=== PATIENT | female | born 1950 | race Caucasian/White ===

== ENCOUNTER → 2016-08-13 | Outpatient (CLI) | payer OTHER ==
[~2016-08-13] MED LIST: ACETAMINOPHEN PO; AMLODIPINE BESYL5 MG PO; LEVOTHROID100 MC1 PO; LEVOTHYROXINE150 MCG PO; TOPROL XL100 MG PO
--- NOTE | ~2016-08-13 | MR113 ---
[facility] A Service of [facility] & [facility] / [facility] RADIOLOGY TEXT RESULTS PATIENT: ZACK MANCERA LOCATION: [facility] : 50 UNIT #: [id number] AGE: [address]: Phillip Warren MD SEX: F ORDER DR: [id number] [address] [address] [id number] O MR#: [id number] Acc #: [id number] NAME: ZACK MANCERA : 1950 SEX: F STUDY DATE/TIME: 08/13/2016 8:44 UNIT: [facility] ROOM: STUDY DESCRIPTION: MR Lumbar Wo Contrast Attending Physician: Phillip Warren M.D. Referring Physician: Phillip Warren M.D. Ordering Physician: Phillip Warren M.D. Primary Care Physician: Phillip Warren M.D. MRI CENTER REPORT This report is preliminary unless electronic signature is present. EXAM MRI of the lumbar spine without contrast INDICATION Sciatica. Low back pain with bilateral lower extremity radiculopathy for 2 months. TECHNIQUE Multiplanar MRI of the lumbar spine without contrast. COMPARISON Lumbar spine radiographs dated 08/07/2016. FINDINGS Vertebral body height and alignment is within normal limits. There is a 1.9 cm mass in the L2 vertebra which is most consistent with a hemangioma. Otherwise no abnormal bone marrow signal. Signal characteristics of the distal thoracic spinal cord and conus medullaris are within normal limits. The conus terminates at the L2 level. L1-2: L1-2 disc is within normal limits. There is mild facet arthropathy. No central canal or neural foraminal stenosis. L2-3: There is a small broad-based disc protrusion centrally. There is moderate facet arthropathy. No significant central canal stenosis, however there is mild bilateral neural foraminal stenosis. L3-4: There is a small broad-based disc protrusion centrally. Moderate bilateral facet arthropathy and mild ligamentum flavum hypertrophy result in a mild central canal stenosis. There is moderate right and severe left neural foraminal stenosis. A far right lateral disc osteophyte complex results in mass effect on the exiting L3 nerve. Please correlate for left STS. [facility] A Service of [facility] & [facility] / [facility] RADIOLOGY TEXT RESULTS PATIENT: ZACK MANCERA LOCATION: [facility] : 50 UNIT #: [id number] AGE: [address]: Phillip Warren MD SEX: F ORDER DR: L3 radiculopathy. L4-5: There is a small broad-based disc protrusion centrally. There is mild facet arthropathy. No significant central canal stenosis. There is moderate bilateral neural foraminal stenosis. L5-S1: There is a small broad-based disc protrusion centrally. There is mild facet arthropathy. No central canal or neural foraminal stenosis. IMPRESSION 1. Mild multilevel degenerative changes throughout the lumbar spine. 2. There is a mild central canal stenosis at L3-4 due to a small disc protrusion, facet arthropathy and ligamentum flavum hypertrophy. 3. Focal disc osteophyte complex at L3-4 in the left far lateral space results in some mass effect on the left L3 nerve. Please correlate for left L3 radiculopathy. 4. Neural foraminal stenosis greatest at L3-4 and L4-5. Please refer to the above report for details. Dictated by... Santos Wills M.D. THIS IS AN ELECTRONICALLY VERIFIED REPORT Santos Wills M.D. at 08/14/2016 10:58 AM SIMRAN/gabby TD: 08/14/2016 10:14 JOB #: [id number] MRI CENTER REPORT
== END | disposition home or self-care (01) ==
LOC: SMRI 07:56
DX: M54.30 Sciatica, unspecified side (principal); M51.26 Other intervertebral disc displacement, lumbar region; M47.816 Spondylosis without myelopathy or radiculopathy, lumbar region; M46.96 Unspecified inflammatory spondylopathy, lumbar region; M48.06 Spinal stenosis, lumbar region; M25.78 Osteophyte, vertebrae
CPT/HCPCS: 72148